=== PATIENT | female | born 1990 | race Asian ===

== ENCOUNTER 2018-01-22 18:37 | Emergency (ER) | payer OTHER | END 2018-01-22 21:36 | disposition home or self-care (01) | LOC: FTE 18:37 | DX: S00.93XA Contusion of unspecified part of head, initial encounter (principal); S16.1XXA Strain of muscle, fascia and tendon at neck level, initial encounter; V49.00XA Driver injured in collision with unspecified motor vehicles in nontraffic accident, initial encounter | CPT/HCPCS: 99283 ==